=== PATIENT | female | born 1960 | race Caucasian/White ===

== ENCOUNTER → 2017-05-19 | Day surgery (SDC) | payer OTHER ==
[~2017-05-19] MED LIST: ACETAMINOPHEN 1000 MG/100 ML 100 ML IV ONE; ACETAMINOPHEN/HYDROcodone 325 MG/5 MG TAB ONE; ATRO0.05 LEFT EYE; BUPIVACAINE/EPINEPHRINE 0.25% 50 ML VIAL ONE; DICL75; DOXY200C; ERGO2000 PO; GLYCOPYRROLATE 1 MG/5 ML SYRINGE IV PUSH ONE; HYDR-3534 PO; HYDROEYE; HYZA50TA2 PO; KETO1SOL3 LEFT EYE; KETOROLAC TROMETHAMINE 30 MG/ML (IVP) VIAL IV PUSH ONE; LACTATED RINGER'S 1000 ML INJ 1,000 ML ONE; LEVO125T3 PO; LOTE0.5G LEFT EYE; MIDAZOLAM HCL 2 MG/2 ML VIAL ONE; MORPHINE SULFATE 4 MG/ML INJ ONE; NEOSTIGMINE METHYLSULFATE 10 MG/10 ML VIAL IV PUSH ONE; NEXI20CA PO; ONDANSETRON HCL 4 MG/2 ML VIAL IV PUSH ONE; PROPOFOL 200 MG/20 ML AMP IV ONE; REST0.05 OU; ROCURONIUM INJ 50 MG/5 ML VIAL ONE; TOBR.3%O LEFT EYE; VALA500 PO; VALT500T PO; VANCOMYCIN HCL 1000 MG VIAL ONE; WELL150T PO; WHIT1OIN LEFT EYE; ZIRG0.15; [UNRECOGNIZED DRUG - CODE]; [UNRECOGNIZED DRUG - CODE]; [UNRECOGNIZED DRUG - CODE] PO; ePHEDrine/NS 50 MG/5 ML SYR IV ONE
--- NOTE | 2017-05-19 15:18 | MP ---
cc: NAFISA BLISS M.D., MICHAEL A. M.D. VANDIEPEN, PATRICIA G. D.O. DATE OF SURGERY: 05/19/2017 PROCEDURE 1. Laparoscopic cholecystectomy. 2. Estuardo-Cut liver biopsy x3. PREOPERATIVE DIAGNOSIS 1. Biliary dyskinesia. 2. Fatty liver. POSTOPERATIVE DIAGNOSIS 1. Biliary dyskinesia. 2. Fatty liver. PROCEDURE IN DETAIL The patient was taken to the operating room and placed on the operating table in the supine position. After an adequate level of general endotracheal anesthesia was achieved the abdomen was prepped and draped in the usual fashion. A timeout was taken confirming the correct patient, site and procedure to be performed. Skin and subcutaneous tissue above the neoumbilicus was infiltrated with local anesthetic. A longitudinal incision was made and carried down to the fascia. The fascia was incised and the posterior fascia was incised as well. The peritoneal cavity was directly visualized. A 12 mm balloon trocar was inserted and the balloon inflated. The abdomen was insufflated. The patient was placed in reverse Trendelenburg position. Three 5 mm trocars were then placed with the first in the upper midline and second and third in the right subcostal region. All entered the abdominal cavity under direct vision uneventfully. At this point the gallbladder was noted to have a fair amount of omental adhesions around it. This was taken down with gentle blunt dissection and electrocautery. When this was accomplished the fundus of the gallbladder was then able to be grasped and retracted up and over the dome of liver. The cystic duct infundibular junction and cystic artery were both circumferentially dissected. The cystic artery was doubly clipped proximally, singly clipped on the gallbladder side and divided. The cystic duct was doubly clipped distally, singly clipped on the gallbladder side and divided as well. The gallbladder was dissected off of liver bed with electro-dissection. The gallbladder was placed into an EndoCatch device and removed via the umbilical port while observing via the upper 5 mm trocar site. The specimen was passed off the table. The upper abdomen was re-visualized via the supraumbilical port site and the liver bed, cystic artery stump and cystic duct stump were all seen to be clean and dry. The patient then had a Estuardo-Cut needle brought in via separate stab incision and three cores of the liver from the medial segment of the left lobe were obtained. Each site was made hemostatic after obtaining liver cores. These were submitted in formalin for the patient's fatty liver. Biopsy sites were reexamined and seen to be clean and dry. With hemostasis assured, insufflation was discontinued. The upper abdominal trocars were removed. The upper midline trocar site had a small amount of bleeding and this was controlled with electrocautery. After complete desufflation the laparoscope and supraumbilical port were then removed. The fascia was closed at the supraumbilical site with 0 Vicryl suture in an interrupted fashion. The remaining local anesthetic was injected into the trocar sites. The skin was closed at each of the trocar sites with 4-0 Vicryl in an interrupted buried fashion except for the Estuardo-Cut needle site which was simply dressed with a Steri-Strip. All remaining trocar sites were dressed with Steri-Strips. The patient was extubated and taken back to the recovery room in stable condition. Sponge and needle counts were reported to be correct. MD MAYRA Andrews/DEVYN /1:42 PM /3:05 PM [id number]
== END | disposition home or self-care (01) ==
LOC: ESDC 10:34
PROVIDERS: ATTEND Surgery Trauma Surgery
DX: K82.8 Other specified diseases of gallbladder (principal); K76.0 Fatty (change of) liver, not elsewhere classified; E66.9 Obesity, unspecified
CPT/HCPCS: 00790; 47001; 47562; 88304; 88307; 88313; J0131; J1885; J2250; J2270; J2405; J2710; J3010; J3370; J7120